=== PATIENT | male | born 1965 | race African-American/Black ===

== ENCOUNTER 2018-07-07 12:23 | Emergency (ER) | payer OTHER ==
[~2018-07-07] VITALS: Ht 182.9 cm; Wt 75.0 kg
[2018-07-07] MEDS ORDERED: GLIP5TAB12 PO (12:29)
[2018-07-07] MEDS ORDERED: LISI-186 PO (12:29)
[2018-07-07] MEDS ORDERED: SODIUM CHLORIDE 0.9% 1,000 ML IV ONE (13:16)
[2018-07-07] MEDS ORDERED: ONDANSETRON HCL 4MG/2ML INJ IV STA (13:16)
[2018-07-07] MEDS ORDERED: KETOROLAC 30MG/ML VIAL IV STA (13:16)
[2018-07-07 13:50] LABS: BASOPHILS % 0.9 % (0.0-2.0); EOSINOPHILS % 2.5 % (0.0-5.0); HEMATOCRIT. 51.4 % (42.0-52.0); HEMOGLOBIN. 17.7 g/dL (14.0-18.0); LYMPHOCYTES % 31.6 % (20.0-50.0); MEAN CORPUSCULAR HEMOGLOBIN 29.5 pg (28.0-32.0); MEAN CORPUSCULAR VOLUME 85.7 fL (80.0-94.0); MEAN PLATELET VOLUME 8.4 fl (7.4-10.4); MONOCYTES % 6.3 % (2.0-8.0); NEUTROPHILS % 58.7 % (40.0-76.0); PLATELET 259 x1000/uL (130-400); RED BLOOD CELL COUNT 6.01 mill/uL (4.7-6.1); RED CELL DISTRIBUTION WIDTH 14.3 % (11.6-14.6)
[2018-07-07 13:56] LABS: CHLORIDE 102 mEq/L (98-107)
[2018-07-07 14:01] LABS: D-DIMER 0.19 mg/L FEU (<0.50); PROTHROMBIN TIME 10.3 sec (9.1-11.1)
[2018-07-07 16:43] VITALS: BP 143/103
== END 2018-07-07 16:44 | disposition home or self-care (01) ==
LOC: ER 12:23
DX: R51 Headache (principal); I10 Essential (primary) hypertension; E11.9 Type 2 diabetes mellitus without complications; Z79.01 Long term (current) use of anticoagulants
CPT/HCPCS: 36415; 70450; 80053; 83880; 84484; 85025; 85379; 85610; 85730; 96361; 96374; 96375; 99285; J1885; J2405; J7030